=== PATIENT | male | born 1975 | race Caucasian/White ===

== ENCOUNTER 2023-05-02 04:40 | Emergency (ER) | payer OTHER, MEDICAID, SELFPAY ==
--- NOTE | ~2023-05-02 | XR_ITS ---
EXAMINATION: XR chest 2V DATE: 05/02/2023 05:55 INDICATION: Shortness of breath. Chest pain. TECHNIQUE: Frontal and lateral views of the chest were obtained. COMPARISON: Chest single view 06/22/2007 FINDINGS: There is no pneumonia, pleural effusion, or pneumothorax. The heart size is normal. IMPRESSION: 1. No acute cardiopulmonary disease. Reviewed, dictated and finalized at location [facility]
[2023-05-02 04:41] VITALS: BP 107/72; PULSE 124; RESP 20; TEMP 38.2; O2SAT 100
--- NOTE | 2023-05-02 04:45 | ECG_ITS ---
Measurements Intervals [place] Rate: 121 P: 63 IA: 123 QRS: 46 QRSD: 86 T: 72 QT: 306 QTc: 435 Interpretive Statements SINUS TACHYCARDIA VOLTAGE CRITERIA FOR LVH NONSPECIFIC ST & T-WAVE ABNORMALITY- INF/LAT LEADS ABNORMAL ECG NO PREVIOUS ECG AVAILABLE FOR COMPARISON Electronically Signed On 05-02-2023 6:52:57 [employer] by Mark Castro D.O.
[2023-05-02 05:17] LABS: Basophils Percent Auto 0.4 % (0.2-1.2); Eosinophils Absolute Auto 0.1 K/mm3 (0-0.3); Eosinophils Percent Auto 0.9 % (0-4.4); Hematocrit 44.1 % (42.0-52.0); Hemoglobin 14.9 g/dL (14.0-18.0); Immature Granulocyte Absolute 0.02 K/mm3 (0.00-0.031); Immature Granulocyte Percent A 0.4 % (0-0.5); Lymphocytes Absolute Auto 0.48 K/mm3 (0.9-3.2); Lymphocytes Percent Auto 8.6 % (18.3-44.2); Mean Corpuscular HGB Conc 33.8 g/dl (32-36); Mean Corpuscular Hemoglobin 30.5 pg (26-34); Mean Corpuscular Volume 90.4 fl (80-100); Mean Platelet Volume 9.1 fl (7.4-10.4); Monocytes Absolute Auto 0.8 K/mm3 (0.1-0.6); Monocytes Percent Auto 14.1 % (2.6-8.5); Neutrophils Absolute Auto 4.2 K/mm3 (1.3-6.7); Neutrophils Percent Auto 75.6 % (45.5-73.1); Platelet Count Result 247 k/mm3 (150-375); Red Blood Count 4.88 M/mm3 (4.6-6.20); Red Cell Distribution Width 12.9 % (11.5-14.5); White Blood Count 5.6 K/mm3 (4.5-10.0)
[2023-05-02 05:33] LABS: Alanine Aminotransferase 89 U/L (6-50); Albumin Level 4.2 g/dL (3.5-5.1); Alkaline Phosphatase 69 U/L (38-126); Anion Gap 6 mmol/L (8-16); Aspartate Amino Transferase 57 U/L (17-59); Bilirubin,Total 0.6 mg/dL (0.2-1.3); Blood Urea Nitrogen 14 mg/dL (9-20); Calcium 9.2 mg/dL (8.4-10.2); Carbon Dioxide 25 mmol/L (22-30); Chloride 102 mmol/L (98-107); Estimated CRCL calculation 94 ml/min; Estimated Glomerular Filt Rate > 60; Glucose 116 mg/dL (65-110); Sodium 133 mmol/L (137-145)
--- NOTE | 2023-05-02 05:45 | PC.NURSE ---
Pt refusing to put on a gown and will not let me get him hooked up to the monitor at this time.
[2023-05-02 05:52] LABS: Influenza A QL RT-PCR Positive (Negative); Influenza B QL RT-PCR Negative (Negative); RSV RNA, RT-PCR Negative (Negative); SARS-CoV-2 RNA PCR Negative (Negative)
[2023-05-02 06:00] VITALS: PULSE 116; O2SAT 96
--- NOTE | 2023-05-02 06:09 | ED.GENADULT ---
HPI - General Adult General Chief complaint: Shortness of Breath/Dyspnea Stated complaint: SOB, headahce, blurred vision Time Seen by Provider: 05/02/23 06:05 History of Present Illness HPI narrative: Patient is a 48-year-old male who presents the emergency department this evening with multiple complaints. Patient admits that he has body aches all over his body and has been running a low-grade fever. Patient also admits to mild shortness of breath and a cough. Patient denies any sharp stabbing chest pain, is denying any worst headache of his life sensation and is also denying any nausea, vomiting, abdominal pain, dysuria or hematuria, constipation, diarrhea. The remainder history of present illness review of systems negative unless stated otherwise in HPI. Related Data Allergies Allergy/AdvReac Type Severity Reaction Status Date / Time acetaminophen Allergy Mild Unknown Unverified 05/02/23 06:19 aspirin Allergy Mild Unknown Verified 05/02/23 06:19 ibuprofen Allergy Mild Unknown Unverified 05/02/23 06:19 Review of Systems Review of Systems: All systems are reviewed and are negative unless stated otherwise in the HPI. Exam Narrative: General: Alert, awake, febrile, in no acute distress. HEENT: PERRL, no rhinorrhea, no post nasal drip, oropharynx clear. Neck: Trachea midline, no JVD, no lymphadenopathy. Cardiovascular: Tachycardic with regular rhythm, no murmurs, rubs or gallops, no peripheral edema. Respiratory: Clear to auscultation bilaterally, no tachypnea, no wheezing, no rhonchi, no rubs, no respiratory distress. Abdomen: Soft, nontender, nondistended, no rebound, no guarding, no peritoneal signs. Musculoskeletal: No joint swelling or deformity, normal muscle tone. Skin: No rashes or petechia, no signs of infection. Psychiatric: Alert and oriented, normal behavior and judgment for situation. Neurological: Alert and oriented to person, place, and time. Follows all commands. No focal deficits, speech is clear and fluent. Course Vital Signs Vital signs: Vital Signs Temperature 100.8 F H 05/02/23 04:41 Pulse Rate 124 H 05/02/23 04:41 Respiratory Rate 20 05/02/23 04:41 Blood Pressure 107/72 05/02/23 04:41 Pulse Oximetry 100 05/02/23 04:41 Oxygen Delivery Room Air 05/02/23 04:41 Temperature 98.9 F 05/02/23 07:26 Pulse Rate 87 05/02/23 07:26 Respiratory Rate 18 05/02/23 07:26 Blood Pressure 130/80 05/02/23 07:26 Pulse Oximetry 98 05/02/23 07:26 Oxygen Delivery Room Air 05/02/23 06:00 Medical Decision Making MDM Narrative Medical decision making narrative: The patient was evaluated by myself in the emergency department. History is obtained from patient who is an independent historian and physical exam was performed. External medical records were reviewed at this time. IV was established and pertinent tests were ordered. Patient was administered a 1 L IV fluid bolus with normal saline. Patient was administered 4 mg of IV Zofran and 2 mg of IV morphine due to body aches given his allergy to ibuprofen and Tylenol. EKG was obtained which revealed sinus tachycardia rate of 121 beats per minute. EKG was independently interpreted by me and is currently pending official cardiology read. Laboratory results obtained revealing no acute process. Viral swabs returned back positive for influenza A. Imaging studies obtained included CXR which was independently interpreted by me revealing no acute process, which is pending final radiology interpretation. Differential diagnosis considerations include acute viral syndrome including COVID, and influenza. Additional differentials include infectious process such as pneumonia. Comorbidities impacting this visit include none. I have evaluated and discussed social determinants of health with the patient that could potentially impact subsequent diagnosis and treatment plans. On repeat assessment of the patient, reevaluation revea
[2023-05-02] MEDS: SODIUM CHLORIDE 0.9% IV 1,000 ML 999 ML IV CONT (06:30)
[2023-05-02 07:26] VITALS: BP 130/80; PULSE 87; RESP 18; TEMP 37.2; O2SAT 98
== END 2023-05-02 07:40 | disposition home or self-care (01) ==
PROVIDERS: Emergency Provider Emergency Medicine
DX: J10.1 Influenza due to other identified influenza virus with other respiratory manifestations (principal); Z20.822 Contact with and (suspected) exposure to COVID-19
CPT/HCPCS: 36415; 71046; 80053; 85025; 87637; 93005; 96360; 99284; J7030